=== PATIENT | male | born 1950 | race Caucasian/White ===

== ENCOUNTER → 2019-02-03 09:52 | Outpatient (POV) | payer SELFPAY | PROVIDERS: Visit Provider Dermatology | DX: Z00.00 Encounter for general adult medical examination without abnormal findings (principal) ==

== ENCOUNTER 2023-10-14 12:18 | Emergency (ER) | payer MEDICARE, SELFPAY ==
[2023-10-14 12:35] VITALS: BP 195/113; PULSE 74; RESP 20; TEMP 36.6; O2SAT 98
[2023-10-14 12:40] VITALS: BP 170/80
--- NOTE | 2023-10-14 12:53 | ED_ITS ---
Discharge Plan Disposition Patient Disposition: Home, Self-Care Condition: Good Prescriptions Prescriptions: New Debrox 6.5 % drops 5 drp otic (ear) Q12H PRN (Reason: ear wax) 4 Days Qty: 15 0RF Referrals Follow up/Referrals: Eric Stephenson MD [Primary Care Provider] - See instructions Activity Restrictions/Add. Instructions Additional Instructions/Restrictions: Follow up with your Family Doctor if no improvement or any worsening of symptom Use drops as prescribed Follow up with ENT if symptoms persist Follow up with your Family Doctor as discussed for recheck of your blood pressure Clinical Impressions Clinical Impression: Impacted ear wax Qualifiers: Laterality: right Qualified Code(s): H61.21 - Impacted cerumen, right ear Instructions Patient Instructions: DI for Cerumen Impaction Discharge ED Provider: Jennifer Lewis [facility] General Stated complaint: right ear pain Mode of Arrival: Ambulatory Source of Information: Patient Limitations: No Limitations Time Seen by Provider: 10/14/23 12:53 Description of Symptoms (Recalled from Triage Doc. by RN): PATIENT C/O NO HEARING FROM RIGHT EAR THAT STARTED LAST SATURDAY. DENIES ANY EAR PAIN HEENT Symptoms (Recalled from RN notes): Yes Resp Symptoms (Recalled from RN notes): No Skin Symptoms (Recalled from RN notes): No MS Symptoms (Recalled from RN notes): No Functional Status (Recalled from RN notes): WNL History of Present Illness Provider Complaint: Patient states that last week his right ear felt full and he tried to clean it out but now he cannot hear anything out of it states that it is not hurting or anything just cant hear thinks it is stopped up or his eustachian tube not draining good Related Data Previous Rx's Medication Instructions Recorded carbamide peroxide 6.5 % ear drops 5 drp otic (ear) Q12H PRN ear wax 10/14/23 (Debrox) 4 days #15 mL Allergies Allergy/AdvReac Type Severity Reaction Status Date / Time No Known Allergies Allergy Verified 10/14/23 12:44 Worker's Comp Is this a Worker's Comp case?: No [facility] Disclaimer: The information contained in this section may have been updated after the patient was seen, as this information can be updated by other users. Medical History (Updated 10/14/23 @ 13:27 by Jennifer Lewis APRN) No significant past medical history Social History Smoking Status: Unknown if ever smoked alcohol intake: never current occupational status: employed Travel in the last 8 weeks: None ROS Obtained: Yes All systems reviewed & no additional complaints except as documented and Yes Systems reviewed as appropriate & no additional complaints except as documented Constitutional Constitutional: Reports system reviewed and no additional complaints, except as documented and Reports as per HPI Eyes Eyes: Reports system reviewed and no additional complaints, except as documented and Reports as per HPI ENT Ears, Nose, Mouth, and Throat: Reports system reviewed and no additional complaints, except as documented, Reports as per HPI and Reports other (not able to hear out of right ear) Cardiovascular Cardiovascular: Reports system reviewed and no additional complaints, except as documented and Reports as per HPI Respiratory Respiratory: Reports system reviewed and no additional complaints, except as documented and Reports as per HPI Gastrointestinal Gastrointestingal: Reports system reviewed and no additional complaints, except as documented and as per HPI Physical Exam General General appearance: alert and in no apparent distress ENT ENT exam: Present mucous membranes moist Expanded ENT Exam TM/Canal exam: Bilateral TM: cerumen impaction (mild on left fully blocked on right) Respiratory Respiratory exam: Present normal lung sounds bilaterally; Absent respiratory distress or wheezes Cardiovascular Cardiovascular exam: Present regular rate, normal rhythm and normal heart sounds Abdominal Exam Abdominal exam: Present soft and normal bowel sounds; Absent distention or tenderness Neurological Exam Neurological exam: Present alert, oriented X3 and normal gait Medical Decision Making Myke Inquiry Pt receiving controlled substance: No Myke was queried for this patient: No Vital Signs: 10/14/23 12:35 Temperature 97.8 F Temperature Source Oral Pulse Rate [Left Brachial] 74 Respiratory Rate 20 Blood Pressure [Left Arm] 195/113 H Blood Pressure Mean [Left Arm] 140 Blood Pressure Source [Left Arm] Automatic Cuff Blood Pressure Position [Left Arm] Sitting 02 Sat by Pulse Oximetry 98 Oxygen Delivery Method Room Air Medical Decision Narrative: Patient blood pressure rechecked 170/80 discussed blood pressure with patient and he advised he would follow up with his family doctor for recheck and treatment Procedures Ear Wax Removal Both Ears: Cerumenolytic Used: other Results: Re-examined: some cerumen remains TM Examination: other (right TM not visable cerumen remains)
[2023-10-14 13:29] VITALS: BP 170/80; PULSE 74; RESP 20; TEMP 36.6; O2SAT 98
== END 2023-10-14 13:32 | disposition home or self-care (01) ==
PROVIDERS: Emergency Provider Nurse Practitioner; PCP Internal Medicine Adolescent Medicine
DX: H92.01 Otalgia, right ear (principal); H61.21 Impacted cerumen, right ear
CPT/HCPCS: 69209; 99204; 99213; G0463

== ENCOUNTER 2023-10-29 07:53 | Outpatient (CLI) | payer MEDICARE, SELFPAY ==
--- NOTE | 2023-10-29 07:58 | CA_ITS ---
APPROVED REPORT EXAM: Comprehensive 2D, Doppler, and color-flow Echocardiogram Sculpture Instructor: Juliette Taylor RVT Ht: 5 ft 9 in Wt: 137lbs BSA: 1.76 BP: 165/90 mmHg Indications: HTN,DIZZINESS,SHANNON 2D Dimensions LA Volume 59.90 mL LA Volume Index 34.03 mL/m2 (M/F) 16-34 M-Mode Dimensions RVDd 3.34 cm (0.9-2.6) LA Diam 2.16 cm (1.9-4.0) LVDd 4.86 cm (3.5-5.7) LVDs 3.54 cm (3.5-5.7) IVSd 0.76 cm (0.6-1.1) PWd 0.56 cm (0.6-1.1) EF (Teich) 52.80% FS 27.20% EDV (Teich) 110.70 mL TAPSE 1.97 (<1.7) ESV (Teich) 52.30 mL LV Diastology E Decel Time 237 (160-240 msec) E/A Ratio 0.7 Aortic Valve JORGE Index 1.13 cm2/m2 AoV Peak Erasmo. 215.0 (50-130 cm/s) AO Peak GR. 18.60 mmHg AO Mean GR. 9.90 (<5 mmHg) AO VTI 40.3 (18-25 cm) JORGE (VTI) 2.03 (2.5-4.5 cm2) Mitral Valve MV E Max Erasmo. 57.0 (40-130 cm/s) MV A Velocity 81.0 (40-130 cm/s) E/A Ratio 0.70 MV PHT 69.0 ms Pulmonary Valve PV Peak Velocity 73.0 (50-150 cm/s) Tricuspid Valve TR P. Velocity 229.00 cm/s RAP Estimate 10.00 mmHg RVSP 31.00 mmHg Left Ventricle The left ventricle is normal size. The left ventricular systolic function is mildly reduced. There is increased LV wall thickness. There is normal LV segmental wall motion. Grade 1 diastolic dysfunction. LVEF is 45%. Right Ventricle The right ventricle is normal size. The right ventricular systolic function is normal. Atria The left atrium is mildly dilated. There is no Doppler evidence of interatrial shunt. The aortic valve is mildly thickened. Aortic sclerosis, but no evidence of aortic stenosis. Trace aortic regurgitation. The right atrium is mildly dilated. Mitral Valve The mitral valve leaflets are mildly thickened. No evidence of mitral valve stenosis. Mild mitral regurgitation. Tricuspid Valve The tricuspid valve leaflets are thin and pliable. Trace tricuspid regurgitation. There is insufficient TR jet to estimate RVSP. Pulmonic Valve The pulmonary valve is normal in structure. Trace pulmonic regurgitation. Great Vessels The aortic root is normal in size. The ascending aorta is not well-visualized. IVC is normal in size and collapses >50% with inspiration. Pericardium There is no pericardial effusion. Other Information Study Quality: Fair Conclusion Mildly reduced LV systolic function (LVEF 45%). Grade 1 diastolic dysfunction. Mild biatrial dilation. Mild MR. Electronically signed by : Rand Lopez MD 10/29/2023 12:16:40
--- NOTE | 2023-10-29 07:59 | CA_ITS ---
FINAL REPORT TECHNIQUE: Color Doppler, duplex Doppler and washington scale sonography of the bilateral neck arterial vasculature was performed. Velocities were measured in the carotid arteries. Stenosis evaluation based on the validated velocity criteria. CLINICAL HISTORY: BRUIT,DIZZINESS,HTN COMPARISON: None FINDINGS: The peak systolic velocity of the right common carotid artery is 62 cm/s. The peak systolic velocity of the right internal carotid artery is 75 cm/s and end diastolic velocity 21 cm/s. The ICA/CCA ratio is 1.21. A moderate amount of plaque is present. The right external carotid artery is patent. The right vertebral artery is patent with antegrade flow. The peak systolic velocity of the left common carotid artery is 95 cm/s. The peak systolic velocity of the left internal carotid artery is 89 cm/s and end diastolic velocity 25 cm/s. The ICA/CCA ratio is 0.93. A moderate amount of plaque is present. The left external carotid artery is patent.The left vertebral artery is patent with antegrade flow. IMPRESSION: Less than 50% bilateral carotid stenoses. Bilateral patent vertebral arteries with antegrade flow. If indicated, CTA or MRA could further evaluate. Reviewed, Interpreted and Dictated by Jonathon Unger MD Transcribed by Corina Etienne Authenticated and [facility]
== END 2023-10-29 23:59 | disposition home or self-care (01) ==
LOC: RT 07:54
PROVIDERS: PCP Internal Medicine Adolescent Medicine; Visit Provider Nurse Practitioner Family
DX: R01.1 Cardiac murmur, unspecified (principal); R09.89 Other specified symptoms and signs involving the circulatory and respiratory systems
CPT/HCPCS: 93306; 93880

== ENCOUNTER 2023-11-14 08:14 | Outpatient (CLI) | payer MEDICARE, SELFPAY ==
--- NOTE | 2023-11-14 08:14 | NM_ITS ---
APPROVED REPORT Exam: Nuclear Stress Test Indication: chest pain Patient Location: Outpatient Stress Tech: Ana Pearson [place] Tech:TAVO Michelle RT(R)(N) Ht: 5 ft 9 in Wt: 137 lbs HR: 77 bpm BP: 181/97 mmHg BSA: 1.76 m2 Rhythm: NSR TID: 1.04 BMI: 20.2 History: chest pain Procedure: Patient exercised on Terry protocol 7 minutes and sec, resting heart rate 77 bpm, resting blood pressure 181/97 mmHg, with exercise maximum heart rate achived was 148 bpm which is 85 % of the maximum predicted heart rate and blood pressure was 241/90 mmHg. Test was stopped due to fatigue. Patient has average exercise capacity, achieved 7.0 METs of workload on treadmill, the blood pressure response to exercise was hypertensive. Cardiac Stress and Resting SPECT Images: Cardiac Stress and Resting SPECT images were obtained using technetium 99m Myoview 32.9 mCi stress and 10.85 mCi at rest. Technically difficult study due to significant soft tissue and diaphragmatic overlap with the cardiac borders. This may affect the diagnostic interpretation of the study findings. Resting and stress imaging in supine position demonstrate a large sized, moderate, fixed perfusion defect in the inferior LV. There is no longer visualized with prone stress imaging. This may represent diaphragmatic attenuation, but true perfusion defect cannot be entirely ruled out. Gated imaging demonstrates moderate reduction in global LV systolic function. LVEF is calculated at 38%. Conclusion: Technically difficult study. Large sized, moderate, fixed perfusion defect in the inferior LV. There is no longer visualized with prone stress imaging. This may represent diaphragmatic attenuation, but true perfusion defect cannot be entirely ruled out. Gated imaging demonstrates moderate reduction in global LV systolic function. LVEF is calculated at 38%. In the setting of technically difficult study, possible artifact versus true perfusion defect, and reduced calculated LVEF in the study, further evaluation with noninvasive testing (i.e. CCTA) is suggested. Of note, the patient had hypertensive BP response to exercise. Additional BP control is recommended. Electronically signed by : Rand Lopez MD 11/17/2023 01:10:51
--- NOTE | 2023-11-14 10:01 | CA_ITS ---
APPROVED REPORT Exam: Exercise Treadmill Technologist: Ana Carnes, Ht: 5 ft 9 in Wt: 133 lbs BSA: 1.74 m2 HR: 69 bpm BP: 182/87 mmHg Rhythm: NSR Medical History Medications: Aspirin,,,,, Valsartan,,,,, EnTRESTO,,,,, Stress Test Details Test: Terry HR Resting HR: 77 bpm Max Heart Rate (APMHR): 147 bpm Max HR Achieved: 148 bpm Target HR (85% APMHR): 125 bpm % of APMHR: 101 Recovery HR: 86 bpm HR response to stress: Normal HR response to stress BP Resting BP: 181.0/97.0 mmHg Max BP: 241.0/90.0 mmHg Recovery BP: 185.0/102.0 mmHg BP response to stress: Abnormal hypertensive response to stress. ECG Resting ECG: NSR, LVH, non-specific ST abns Stress ECmm horizontal ST depression Arrhythmia: PACs, PVCs Recovery ECG: Return to baseline within 5 minutes of recovery Recovery Arrhythmia: PACs, PVCs Clinical Exercise duration: 07:00 min Highest Stage Achieved: Exercise capacity: 7.0 METs Overall Exercise Capacity for Age: Average Stress ECG Conclusion Exercised 7:00 on Terry Protocol. Avapro (irbesartan) 75mg PO given post test. BP after stress imaging was 176/80. Will monitor at home & contact cardiology if remains high. Max HR: 148 % of PM: 101% The patient was able to exercise for a total of 7 minutes, 0 seconds. He achieved a total of 7.0 METS. He has average exercise capacity compared to age and sex matched peers. He has normal HR, but exaggerated hypertensive BP, response to exercise. Max BP: 241/90 METs: 7.0 Test stopped due to: SOA, fatigue Symptoms: No chest pain Arrhythmias/Ectopy: Frequent PVCs, occasional PACs ST-T Changes: [address] depression. Conclusion: EKG changes (+) for ischemia (without chest pain). Myoview images reported separately. Of note, the patient has hypertensive BP response to exercise. BP control is recommended. Test Summary REST . . . . . . . Sitting REST . . . . . . . Standing REST 05:13 0.0 0.0 77 . 181/ 97 . . Stage 1 01:00 10.0 1.7 100 . . . . Stage 1 02:00 10.0 1.7 113 . . . . Stage 1 03:00 10.0 1.7 121 . 200/ 86 . . Stage 2 01:00 12.0 2.5 130 . . . . Stage 2 02:00 12.0 2.5 138 . . . . Stage 2 . . . . . . . Stage held Stage 2 03:00 12.0 2.5 140 . . . . Stage 2 . . . . . . . Stage resumed Stage 2 04:00 12.0 2.5 147 . . . Stop exercise at 07:00 RECOVERY 01:00 0.0 0.0 118 . . . . RECOVERY 02:00 0.0 0.0 92 . . . . RECOVERY 03:00 0.0 0.0 87 . 241/ 90 . . RECOVERY 04:00 0.0 0.0 93 . 180/100 . . RECOVERY 05:00 0.0 0.0 81 . 180/100 . . RECOVERY 06:00 0.0 0.0 86 . 195/ 95 . . RECOVERY 07:00 0.0 0.0 80 . 195/ 95 . . RECOVERY 08:00 0.0 0.0 84 . 185/102 . . RECOVERY 09:00 0.0 0.0 88 . 185/102 . . RECOVERY 10:00 0.0 0.0 85 . 185/102 . . RECOVERY 11:00 0.0 0.0 81 . 185/102 . . RECOVERY 12:00 0.0 0.0 84 . 185/102 . . RECOVERY 12:55 0.0 0.0 78 . 185/102 . . Electronically signed by : Rand Lopez MD 11/17/2023 01:07:55
[2023-11-14] MEDS: ISOTOPE MYOVIEW (PER STUDY) 1 DOSE IV (10:30)
[2023-11-14] MEDS: SODIUM CHLORIDE 0.9% 10ML SYR (RAD ONLY) 10 ML IV ×2 (10:30)
== END 2023-11-14 23:59 | disposition home or self-care (01) ==
LOC: RAD 08:14
PROVIDERS: PCP Internal Medicine Adolescent Medicine; Visit Provider Physician Assistant
DX: R94.31 Abnormal electrocardiogram [ECG] [EKG] (principal); R07.9 Chest pain, unspecified; I50.20 Unspecified systolic (congestive) heart failure
CPT/HCPCS: 78452; 93017; 93018; A9502

== ENCOUNTER 2025-03-11 10:42 | Outpatient (CLI) | payer OTHER, SELFPAY ==
--- OUTSIDE RECORDS SUMMARY | 2025-03-11 10:51 | XMS_ITS | Encounter Summary ---
Author Organization [facility] Address [address] [place] [address] Care Team Providers Care Ore Tester Name Role Phone Loyd Rivera APRN Primary Care Provider + [phone] Encounter Details Date Type Department Care Team (Late st Contact Info) Description 02/11/2025 Telephone [facility] [address] [place] [address] Samina Guzman MD [address] [place] [address] Social History Tobacco Use Types Packs/Day Years Used Date Smoking Tobacco: Never Passive Smoke Exposure: Past Smokeless Tobacco: Current Chew Alcohol Use Standard Drinks/Week Comments Never 0 (1 standard drink = 0.6 oz pur e alcohol) AUDIT-C Answer Date Recorded Q1: How often do you have a drink containing alcohol? Never 02/26/2024 Q2: How many drinks containi ng alcohol do you have on a typical day when you are drinking? Patient does not drink Q3: How often do you have si x or more drinks on one occasion? Never 02/26/2024 Abuse Screen Answer Date Recorded Feels Unsafe at Home or Work/School no 02/26/2024 Feels Threatened by Someone no 02/08 Does Anyone Try to Keep You From Having Contact with Others or Doing Things Outside Your Home? no 02/26/2024 Physical Signs of Abuse Present no 02/26/2024 Housing Stability Answer Date Recorded Current Living Arrangements home 02/08 Potentially Unsafe Housing Conditions Not on allan e 02/26/2024 Disabilities Answer Date Recorded Difficulty Concentrating, Remembering or Making Decisions no 02/26/2024 Difficulty Managing Errands Independently no 02/26/2024 Sex and Gender Information Value Date Recorded Sex Assigned at Not on file Legal Sex Male 8:35 AM EDT Gender Identity Not on file Sexual Orientation Not on file documented as of this encounter Miscellaneous Notes * Telephone Encounter - Daria Hines PA-C - 02/12/2025 12:17 PM EDT Blood pressures noted. If his SBP remains greater than 140 he should call our office for alternative antihypertensive therapy. * Telephone Encounter - Frances Brian RN - 02/11/2025 10:59 AM EDT Opened in error. documented in this encounter Plan of Treatment Upcoming Encounters Date Type Department Care Team (Late st Contact Info) Description 07/23/2025 11:30 AM EST Office Visit [facility] [address] [place] [id number] Samina Guzman MD [address] [place] [address] documented as of this encounter Goals Goal Patient Goal Type Associated Problems Recent Progress Patient-Stated? Author Specialty Pharmacy General Goal General No Karen Rodrigues, PharmD Note: LDL Goal < 70 mg/dL Lab Results Component Value Date LDL 167 (H) 02/26/2024 documented as of this encounter Visit Diagnoses Not on filedocumented in this encounter Care Teams Ore Tester Relationship Specialty Start Date End Date Loyd Rivera APRN [address] [place] [address] [place] [id number] PCP - General Family Medicine 02/03/24 documented as of this encounter
--- OUTSIDE RECORDS SUMMARY | 2025-03-11 10:51 | XMS_ITS ---
Author Organization [facility] Address [address] [place] [address] Care Team Providers Care Manager Interface Name Role Phone Loyd Rivera APRN Primary Care Provider [phone] Cardiology Status:Enrolled (Active) Start date:12/15/2024 Enrollment date:12/15/2024 Enrollment reason:New start at Current support & services provided:Clinical Assessment, Refill Coordination , Benefits Investigation, [facility] Dispensing Linked medications:Evolocumab (Active) Linked problems:Coronary artery disease involving coronary bypass graft of jena heart without angina pectoris (Active), Hyperlipidemia LDL goal <70 (Active) Overview Jerry Continued Care and Services Coordination
--- OUTSIDE RECORDS SUMMARY | 2025-03-11 10:51 | XMS_ITS | Clinical Summary ---
Author Organization [facility] yste Address [address] [place] [address] Care Team Providers Care Cutch Cleaner Name Role Phone Loyd Rivera APRN Primary Care Provider + [phone] Allergies No known active allergies Medications aspirin 81 MG EC tablet Take 1 tablet by mouth Daily. Active clopidogrel (PLAVIX) 75 MG tablet Take 1 tablet by mouth Daily. 90 tablet 3 10/17/19 25 Active valsartan (DIOVAN) 40 MG tablet Take 0.5 tablets by mouth Daily. 90 tablet 1 10/17/19 25 Active Evolocumab (REPATHA) solution prefilled syringe injection Inject 1 mL under the skin into the appropriate area as directed Every 14 (Fourteen) Days. 6 mL 4 5 9:30 AM EDT 12/19/19 25 Active rosuvastatin (CRESTOR) 20 MG tablet Take 1 tablet by mouth Daily. 90 tablet 3 10/17/19 25 025 Discontinued Active Problems Problem Noted Date Diagnosed Date Coronary artery disease invo lving coronary bypass graft of rampart heart without angina pectoris 03/24/2024 Hyperlipidemia LDL goal <70 03/24/2024 Abnormal findings diagnostic imaging of heart and coronary circulation 02/05/[address] 02/05/2024 Chronic chest pain with high risk for CAD 2023 Encounters Date Type Department Care Team Description 02/11/2025 Telephone [facility] [address] [facility] [address] [place] [address] Samina Guzman MD 02/10/2025 Telephone [facility] [address] [facility] [address] [place] [address] Daria Hines PA-C from Last 3 Months Family History Medical History Relation Name Comments Heart attack Father sosa Heart failure Mother carolina Relation Name Status Comments Father sosa Mother carolina Social History Tobacco Use Types Packs/Day Years Used Date Smoking Tobacco: Never Passive Smoke Exposure: Past Smokeless Tobacco: Current Chew Tobacco Cessation:Ready to Q uit: Not Asked Alcohol Use Standard Drinks/Week Comments Never 0 [...] on file Sexual Orientation Not on file Last Filed Vital Signs Vital Sign Reading Time Taken Comments Blood Pressure 160/78 10/16/2024 3:15 PM EDT Pulse 69 10/16/2024 3:15 PM EDT Temperature 36.5 C (97.7 F) 02/26/2024 8:12 AM EDT Respiratory Rate 16 02/26/2024 11:15 AM EDT Oxygen Saturation 96% 10/16/2024 3:15 PM EDT Inhaled Oxygen Concentration - - Weight 60.3 kg (133 lb) 10/16/2024 3:15 PM EDT Height 175.3 cm (5' 9 ) 10/16/2024 3:15 PM EDT Body Mass Index 19.64 10/16/2024 3:15 PM EDT Plan of Treatment Upcoming Encounters Date Type Department Care Team (Late st Contact Info) Description 07/23/2025 11:30 AM EST Office Visit [facility] [address] [place] [id number] Samina Guzman MD [address] [facility] [address] [place] [address] Health Maintenance Due Date Last Done Comments TDAP/TD VACCINES (1 - Tdap) 1969 COLOGUARD 1995 COLON CANCER SCREENING 5 YEAR SIGMOIDOSCOPY 1995 COLONOSCOPY 1995 [address] CANCER SCREENING 1995 CT COLONOGRAPHY 1995 FECAL OCCULT BLOOD TEST 1995 FIT Testing (1 year) 1995 Pneumococcal Vaccine 50+ (1 of 1 - PCV) 2000 ZOSTER VACCINE (1 of 2) 2000 ANNUAL WELLNESS VISIT 01/14/2024 HEPATITIS C SCREENING 01/14/2024 INFLUENZA VACCINE 01/08/2025 COVID-19 Vaccine ( - season) 2025 LIPID PANEL 02/25/2025 02/26/2024 Goals Goal Patient Goal Type Associated Problems Recent Progress Patient-Stated? Author Specialty Pharmacy General Goal General No Karen Rodrigues, PharmD Note: LDL Goal < 70 mg/dL Lab Results Component Value Date LDL 167 (H) 02/26/2024 Medical Devices Implanted Type Area Instructor [employer] Device Identifier Shelf Expiration Date Model / Serial / Lot Stnt [employer]/Skypoint Rapdxng 3.5x28mm - [id number] Implanted:Qty: 1 on 02/26/2024 by Juan R Bah MD at [facility] [employer] 09/16/2026 [id number] / / [id number] Stnt [employer] Xience/Skypoint Rapdxng 3.5x18mm - [id number] Implanted:Qty: 1 on 02/26/2024 by Juan R Bah MD at [facility] [employer] 04/30/2026 [id number] / / [id number] Stnt [employer] Xience/Skypoint Rapdxng 2.06c84ef - [id number] Implanted:Qty: 1 on 02/26/2024 by Juan R Bah MD at [facility] [employer] 06/18/2026 [id number] / / [id number] Procedures Procedure Name Priority Date/Time Associated Diagnosis Comments LIPID PANEL STAT 02/26/2024 8:20 AM EDT from Last 3 Months or Most Recently Relevant to Health Maintenance Results * (ABNORMAL) Lipid Panel (02/26/2024 8:20 AM EDT) Total Cholesterol 234(H) 0 - 200 mg/dL 02/26/2024 8:59 AM EDT [facility] Triglycerides 119 0 - 150 mg/dL 02/26/2024 8:59 AM EDT [facility] HDL Cholesterol 46 40 - 60 mg/dL 02/26/2024 8:59 AM EDT [facility] LDL Cholesterol 167(H) 0 - 100 mg/dL 02/26/2024 8:59 AM EDT [facility] VLDL Cholesterol 21 5 - 40 mg/dL 02/26/2024 8:59 AM EDT [facility] LDL/HDL Ratio 3.57 02/26/2024 8:59 AM EDT [facility] Blood Line / Unknown 02/26/2024 8: 20 AM EDT 02/26/2024 8:33 AM EDT Narrative [facility] - 02/26/2024 8:59 AM EDT Cholesterol Reference Ranges (U.S. Department of Health and Human Services ATP III Classifications) Desirable <200 mg/dL Borderline High 200-239 mg/dL High Risk >240 mg/dL Triglyceride Reference Ranges (U.S. Department of Health and Human Services ATP III Classifications) Normal <150 mg/dL Borderline High 150-199 mg/dL High 200-499 mg/dL Very High >500 mg/dL HDL Reference Ranges (U.S. Department of Health and Human Services ATP III Classifications) Low <40 mg/dl (major risk factor for CHD) High >60 mg/dl ('negative' risk factor for CHD) LDL Reference Ranges (U.S. Department of Health and Human Services ATP III Classifications) Optimal <100 mg/dL Near Optimal 100-129 mg/dL Borderline High 130-159 mg/dL High 160-189 mg/dL Very High >189 mg/dL Aretha Mccabe PA-C LAB BLOOD ORDERABLES Final Result [facility]
[address] [place] [address], from Last 3 Months or Most Recently Relevant to Health Maintenance Insurance [employer] MEDICARE [employer]VANTAGE PPO Care Teams Cutch Cleaner Relationship Specialty Start Date End Date Loyd Rivera APRN [address] [place] [address] PCP - General Family Medicine 02/03/24
--- OUTSIDE RECORDS SUMMARY | 2025-03-11 10:51 | XMS_ITS | Encounter Summary ---
Author Organization [facility] ystem Address [address] [place] [address] Care Team Providers Care Gang Miner Name Role Phone Loyd Rivera APRN Primary Care Provider + [phone] Encounter Details Date Type Department Care Team (Late st Contact Info) Description 02/10/2025 Telephone [facility] [address] [facility] [address] [place] [address] Daria Hines PA-C [address] [facility] [address] [place] [address] Social History Tobacco Use Types Packs/Day Years [...] Telephone Encounter - Daria Hines PA-C - 02/10/2025 3:42 PM EDT He can come off of valsartan. What are his blood pressures running? He should keep a log after coming off of valsartan as he may need alternative antihypertensive therpay documented in this encounter Plan of Treatment Upcoming Encounters Date Type Department Care Team (Late st Contact Info) Description 07/23/2025 11:30 AM EST Office Visit [facility] [address] [facility] [address] [place] [address] Samina Guzman MD [address] [facility] [address] [place] [address] documented as of this encounter Goals Goal Patient Goal Type Associated Problems Recent Progress Patient-Stated? Author Specialty Pharmacy General Goal General No Karen Rodrigues, PharmD Note: LDL Goal < 70 mg/dL Lab Results Component Value Date LDL 167 (H) 02/26/2024 documented as of this encounter Visit Diagnoses Not on filedocumented in this encounter Care Teams Gang Miner Relationship Specialty Start Date End Date Loyd Rivera APRN [address] [place] [address] PCP - General Family Medicine 02/03/24 documented as of this encounter
--- NOTE | 2025-03-11 10:52 | XR_ITS ---
FINAL REPORT CLINICAL HISTORY: PAIN in left hip COMPARISON: None FINDINGS: LEFT HIP: Two views of the left hip with an AP view of the pelvis demonstrate no acute fracture or dislocation. There is [id number] joint space narrowing on the left. Osteophytes are noted at the joint margins. No soft tissue abnormality is seen. IMPRESSION: No acute bony abnormality. Moderate hypertrophic changes of osteoarthritis. Reviewed, Interpreted and Dictated by Jonathon Unger MD Transcribed by Corina Etienne Authenticated and [facility]
== END 2025-03-11 23:59 | disposition home or self-care (01) ==
LOC: RAD 10:46
PROVIDERS: PCP Nurse Practitioner Family; Visit Provider Nurse Practitioner Family
DX: M16.12 Unilateral primary osteoarthritis, left hip (principal)
CPT/HCPCS: 73502